=== PATIENT | female | born 1995 | race Caucasian/White ===

== ENCOUNTER → 2019-04-19 | Outpatient (CLI) | payer MEDICAID ==
--- NOTE | 2019-04-19 09:33 | Diagnostic Imaging Report ---
PROCEDURE: MR imaging cervical spine without contrast. TECHNIQUE: Multiplanar, multisequence MR imaging of the cervical spine was performed without contrast. INDICATION: Neck pain. FINDINGS: There is straightening of the normal cervical lordosis. The vertebral body heights are well maintained. The prevertebral soft tissues are within normal limits. Posterior fossa is unremarkable. The visualized portions of all of the cervical discs are normal in height, signal intensity and morphology. There is no focal disc extrusion or high-grade spinal stenosis. IMPRESSION: Unremarkable MRI of the cervical spine. Dictated by: Dictated on workstation # [id number]
--- NOTE | 2019-04-19 11:29 | Diagnostic Imaging Report ---
PROCEDURE: MRI left upper extremity without contrast. TECHNIQUE: Multiplanar, multisequence non contrast-enhanced MRI of the left upper extremity was accomplished. INDICATION: Chronic left shoulder pain. COMPARISON: None. FINDINGS: No acute fracture or dislocation is seen in the left shoulder. Alignment is normal. There is no joint effusion. The supraspinatus, infraspinatus, subscapularis, and teres minor tendons appear intact. No muscular atrophy is seen. The long head of the biceps tendon appears normal in course and signal. The glenoid labrum is suboptimally evaluated without contrast, but no tear or para-labral cyst is seen. The coracoclavicular and coracoacromial ligaments appear intact. The acromion has a curved undersurface without hooking. The soft tissues about the left shoulder are otherwise unremarkable. IMPRESSION: 1. No acute abnormality is seen in the left shoulder. Dictated by: Dictated on workstation # [id number]
== END ==
LOC: RAD 08:00
PROVIDERS: ATTEND Nurse Practitioner
DX: M25.512 Pain in left shoulder (principal); Z87.828 Personal history of other (healed) physical injury and trauma
CPT/HCPCS: 72141; 73221